=== PATIENT | male | born 1950 | race Caucasian/White ===

== ENCOUNTER 2020-11-13 17:02 | Emergency (ER) | payer MEDICARE ==
[~2020-11-13 17:02] MED LIST: AMMONIUM LACTATE1 ML TP; ANTIVERT 12.512.5 MG PO; ASPIR 8181 MG PO; COLACE 100MG C100 MG PO; COREG 12.5MG12.5 MG PO; COREG 25MG TAB25 MG PO; CYMBALTA30 MG PO; DHA100 MG PO; FISH OIL 1,2001 EACH PO; FUROSEMIDE20 MG PO; K-DUR TAB 10 M10 MEQ PO; LEVEMIR100 UNIT/1 SQ; LIPITOR TAB 2020 MG PO; NEURONTIN 400400 MG PO; NIZORAL 2% CREA15 GM EXT; NORVASC10 MG PO; NOVOLOG 10100 UNITS1 SQ; OMEGA 3 FISH O1 EACH PO; OMEPRAZOLE20 M1 PO; PRIMIDONE50 MG PO; REQUIP1 MG PO; SILVER SULFADIA85 GM TP; TERAZOSIN HCL10 MG PO; TRAZODONE HCL50 MG PO; TYLENOL WITH C1 EACH PO; VALSARTAN160 MG PO; VITAMIN E400 UNI4 PO; ZANAFLEX 4 MG TA4 MG PO; ZOFRAN ODT 4 MG4 MG PO
[2020-11-14] MEDS ORDERED: CYCLOBENZAPRINE5 MG PO (01:37)
[2020-11-14] MEDS ORDERED: IBUPROFEN800 MG PO (01:37)
== END 2020-11-13 21:57 | disposition home or self-care (01) ==
LOC: ER1 17:02
DX: S43.401A Unspecified sprain of right shoulder joint, initial encounter (principal); I10 Essential (primary) hypertension; E11.9 Type 2 diabetes mellitus without complications; W10.9XXA Fall (on) (from) unspecified stairs and steps, initial encounter
CPT/HCPCS: 70450; 71045; 72125; 73030; 99284

== ENCOUNTER → 2021-04-30 | Outpatient (CLI) | payer OTHER ==
[~2021-04-30] MED LIST changes: +CYCLOBENZAPRINE5 MG PO; +IBUPROFEN800 MG PO
[2021-04-30 12:27] LABS: BUN/CREATININE RATIO 29 (0-10)
== END ==
LOC: LAB 10:25
DX: M25.511 Pain in right shoulder (principal); M25.512 Pain in left shoulder; M12.812 Other specific arthropathies, not elsewhere classified, left shoulder; E11.9 Type 2 diabetes mellitus without complications; R94.31 Abnormal electrocardiogram [ECG] [EKG]; I45.2 Bifascicular block; I51.7 Cardiomegaly
CPT/HCPCS: 36415; 80053; 83036; 93005

== ENCOUNTER 2021-07-21 14:34 | Observation (INO) | payer OTHER ==
[~2021-07-21] VITALS: Ht 180.3 cm; Wt 153.3 kg
[~2021-07-21 14:34] MED LIST changes: +ATORVASTATIN CA40 MG PO; -COREG 12.5MG12.5 MG PO; -FUROSEMIDE20 MG PO; -LIPITOR TAB 2020 MG PO; -PRIMIDONE50 MG PO; -REQUIP1 MG PO; +ROPINIROLE HCL1 MG PO; -SILVER SULFADIA85 GM TP; +TOUJEO MAX300 UNIT/1 SQ
[2021-07-21 16:02] LABS: HEMOGLOBIN 14.8 gm/dl (14.0-17.5); RED BLOOD COUNT 5.12 M/UL (4.20-5.50); WHITE BLOOD COUNT 15.3 K/UL (4.5-11.0)
[2021-07-21 16:25] LABS: BUN/CREATININE RATIO 21 (0-10)
[2021-07-21] MEDS ORDERED: HYDROCHLOROTHIA25 MG PO (17:56)
[2021-07-21] MEDS ORDERED: IBU800 MG PO (17:57)
[2021-07-21] MEDS ORDERED: ESCITALOPRAM OX20 MG PO (17:57)
[2021-07-21] MEDS ORDERED: CUTIVATE TP (17:58)
[2021-07-21] MEDS ORDERED: GLIPIZIDE5 MG PO (17:59)
--- NOTE | 2021-07-21 18:09 | NUR ---
reported to dr. lopes of patient elevated b/p 231/97, heart rate of 81. patient resting comfortably, denies chest pain. reported of martha yip of giving patient coreg 25mg po and hydralazine [address] lopes stated he will look at the chart and will write order. informed reema rn of the above
[2021-07-21] MEDS ORDERED: PRIMIDONE50 MG PO ×2 (19:25→19:41)
[2021-07-21] MEDS ORDERED: FUROSEMIDE20 MG PO (19:31)
[2021-07-21] MEDS ORDERED: SILVER SULFADIA85 GM TP (19:44)
[2021-07-22 03:38] LABS: HEMOGLOBIN 12.4 gm/dl (14.0-17.5); RED BLOOD COUNT 4.38 M/UL (4.20-5.50); WHITE BLOOD COUNT 10.7 K/UL (4.5-11.0)
[2021-07-22 03:57] LABS: BUN/CREATININE RATIO 21 (0-10)
[2021-07-22] MEDS ORDERED: BACTRIM DS TAB1 EACH PO (09:43)
== END 2021-07-22 13:00 | disposition home or self-care (01) ==
LOC: ER1 14:34 → CDU 16:44 → M/S 16:44
PROVIDERS: Physician Assistant; Physician Assistant Medical; ADMIT Internal Medicine
DX: L03.032 Cellulitis of left toe (principal); I87.8 Other specified disorders of veins; I10 Essential (primary) hypertension; E11.9 Type 2 diabetes mellitus without complications; E78.5 Hyperlipidemia, unspecified; E66.01 Morbid (severe) obesity due to excess calories; Z88.8 Allergy status to other drugs, medicaments and biological substances; Z20.822 Contact with and (suspected) exposure to COVID-19; Z90.49 Acquired absence of other specified parts of digestive tract
CPT/HCPCS: 36415; 73630; 80048; 80053; 83036; 83735; 84550; 85025; 85027; 85652; 86140; 87040; 96375; 96376; 99284; G0378; J0360; J1956; J2543; J3370; J7050; J7070; U0002

== ENCOUNTER 2021-07-28 13:48 | Inpatient (IN) | payer OTHER ==
[~2021-07-28] VITALS: Ht 152.4 cm; Wt 150.1 kg
[~2021-07-28 13:48] MED LIST changes: +BACTRIM DS TAB1 EACH PO; +CUTIVATE TP; +ESCITALOPRAM OX20 MG PO; +FUROSEMIDE20 MG PO; +GABAPENTIN800 MG PO; +GLIPIZIDE5 MG PO; +HYDROCHLOROTHIA25 MG PO; +IBU800 MG PO; -NEURONTIN 400400 MG PO; +PRIMIDONE50 MG PO; +SILVER SULFADIA85 GM TP
[2021-07-28 16:12] LABS: HEMOGLOBIN 11.9 gm/dl (14.0-17.5); RED BLOOD COUNT 4.37 M/UL (4.20-5.50); WHITE BLOOD COUNT 8.2 K/UL (4.5-11.0)
[2021-07-28 16:43] LABS: BUN/CREATININE RATIO 22 (0-10)
[2021-07-29 07:03] LABS: HEMOGLOBIN 11.3 gm/dl (14.0-17.5); RED BLOOD COUNT 4.17 M/UL (4.20-5.50); WHITE BLOOD COUNT 8.2 K/UL (4.5-11.0)
[2021-07-29 07:22] LABS: BUN/CREATININE RATIO 22 (0-10)
[2021-07-31 07:01] LABS: RED BLOOD COUNT 4.26 M/UL (4.20-5.50); WHITE BLOOD COUNT 7.8 K/UL (4.5-11.0)
--- NOTE | 2021-07-31 12:42 | NUR ---
CLARIFICATION WITH DR YAP THAT PATIENT DID NOT NEED TO BE IN ISOLATION REALTED TO POSITIVE COVID RESULT.
[2021-08-01 06:16] LABS: HEMOGLOBIN 12.2 gm/dl (14.0-17.5); RED BLOOD COUNT 4.29 M/UL (4.20-5.50); WHITE BLOOD COUNT 9.1 K/UL (4.5-11.0)
[2021-08-02 06:25] LABS: HEMOGLOBIN 10.8 gm/dl (14.0-17.5); RED BLOOD COUNT 3.87 M/UL (4.20-5.50); WHITE BLOOD COUNT 7.6 K/UL (4.5-11.0)
--- NOTE | 2021-08-02 23:23 | NUR ---
AT APPROXIMATELY 2305 COMPUTING ARCHITECT DANIEL CALLED ME INTO PTS ROOM, STATING HE WASNT ACTING RIGHT. THE PT WAS TALKING CONFUSED AND WAS UNABLE TO SIT UP IN BED ON HIS OWN. I CHECKED A BLOOD GLUCOSE AND IT WAS 161. BP ON MONITOR WAS 87/46. BP MANUALLY 88/48. THE PT WAS DISORIENTED AND CONFUSED FOR APPROXIMATELY 5 MINUTES BEFORE BECOMING ORIENTED AND NO LONGER DIZZY AGAIN. HE STATED HE THOUGHT HE JUST GOT REALLY SLEEP AND FELT BETTER NOW. MD NOTIFIED. ORDER FOR TELE WITH PULSE OX RECEIVED TO FURTHER MONITOR PT.
[2021-08-03 05:16] LABS: HEMOGLOBIN 11.4 gm/dl (14.0-17.5); RED BLOOD COUNT 4.04 M/UL (4.20-5.50); WHITE BLOOD COUNT 8.7 K/UL (4.5-11.0)
[2021-08-04 06:51] LABS: HEMOGLOBIN 11.3 gm/dl (14.0-17.5); RED BLOOD COUNT 4.04 M/UL (4.20-5.50); WHITE BLOOD COUNT 7.2 K/UL (4.5-11.0)
[2021-08-04 09:04] LABS: BUN/CREATININE RATIO 25 (0-10)
[2021-08-04] MEDS ORDERED: PERCOCET 5/325 T1 EA PO (09:49)
[2021-08-04] MEDS ORDERED: VIBRAMYCIN 100100 MG PO (09:49)
[2021-08-04] MEDS ORDERED: TOUJEO MAX300 UNIT/1 SQ (09:54)
[2021-08-04] MEDS ORDERED: NOVOLOG 10100 UNITS1 SQ (09:54)
[2021-08-04] MEDS ORDERED: LISINOPRIL10 MG PO (09:54)
== END 2021-08-04 14:24 | disposition home or self-care (01) | DRG 264 ==
LOC: ER1 13:48 → CDU 17:09 → MED SURG 4 17:09
PROVIDERS: Internal Medicine; Physician Assistant; Podiatrist Foot & Ankle Surgery; ADMIT Internal Medicine
PROC: 0J9R0ZZ Drainage of Left Foot Subcutaneous Tissue and Fascia, Open Approach (ICD-10-PCS; 2021-07-31)
PROC: 0JBR0ZZ Excision of Left Foot Subcutaneous Tissue and Fascia, Open Approach (ICD-10-PCS; principal; 2021-07-31 12:57)
DX: E11.52 Type 2 diabetes mellitus with diabetic peripheral angiopathy with gangrene (principal); L03.116 Cellulitis of left lower limb; N17.9 Acute kidney failure, unspecified; L02.416 Cutaneous abscess of left lower limb; Z68.42 Body mass index [BMI] 45.0-49.9, adult; Z20.822 Contact with and (suspected) exposure to COVID-19; B95.62 Methicillin resistant Staphylococcus aureus infection as the cause of diseases classified elsewhere; E11.649 Type 2 diabetes mellitus with hypoglycemia without coma; I10 Essential (primary) hypertension; E66.01 Morbid (severe) obesity due to excess calories; I87.8 Other specified disorders of veins; E11.621 Type 2 diabetes mellitus with foot ulcer; E11.40 Type 2 diabetes mellitus with diabetic neuropathy, unspecified; K21.9 Gastro-esophageal reflux disease without esophagitis; E78.5 Hyperlipidemia, unspecified; Z79.4 Long term (current) use of insulin; Z86.16 Personal history of COVID-19; Z88.8 Allergy status to other drugs, medicaments and biological substances; Z82.49 Family history of ischemic heart disease and other diseases of the circulatory system; Z90.49 Acquired absence of other specified parts of digestive tract
CPT/HCPCS: 36415; 71045; 73700; 80048; 80053; 80202; 82962; 83880; 84439; 84443; 85025; 85652; 86140; 87040; 87070; 87077; 87186; 87205; 93005; 96374; 96375; 99284; J1650; J1940; J2185; J2370; J2543; J2704; J2795; J3010; J3370; J7030; J7050; J7070; J7120; U0002

== ENCOUNTER → 2022-07-01 | Outpatient (CLI) | payer OTHER ==
[~2022-07-01] MED LIST changes: +LISINOPRIL10 MG PO; +PERCOCET 5/325 T1 EA PO; +VIBRAMYCIN 100100 MG PO
== END ==
LOC: KOH-I 13:06
DX: M25.512 Pain in left shoulder (principal); M54.2 Cervicalgia
CPT/HCPCS: 72040; 73030